=== PATIENT | female | born 1965 | race African-American/Black ===

== ENCOUNTER 2016-07-03 16:50 | Outpatient (CLI) | payer OTHER ==
[2016-07-03 17:13] LABS: BASOPHILS % 0.5 (0.0-1.5); EOSINOPHILS % 6.1 % (0.0-6.8); LYMPHOCYTES # 1.8 # k/uL (0.6-4.0); MEAN CORPUSCULAR HEMOGLOBIN 30.5 pg (28.0-34.0); MONOCYTES # 0.4 # k/uL (0.0-0.9); MONOCYTES % 6.7 % (0.0-11.0); NEUTROPHILS # 3.2 # k/uL (1.4-7.7)
[2016-07-03 17:37] LABS: eGFR (African) > 60; eGFR (Non-African) > 60
== END 2016-07-03 16:52 ==
LOC: LAB 16:50
PROVIDERS: ATTEND General Practice
DX: Z01.810 Encounter for preprocedural cardiovascular examination (principal)
CPT/HCPCS: 36415; 80053; 85025; 85610; 85730

== ENCOUNTER 2016-07-10 09:56 | Outpatient (CLI) | payer OTHER | END 2016-07-10 09:57 | LOC: OUT 09:56 | PROVIDERS: ATTEND General Practice | DX: Z01.818 Encounter for other preprocedural examination (principal) | CPT/HCPCS: 99213 ==

== ENCOUNTER 2016-07-24 08:51 | Outpatient (CLI) | payer OTHER | END 2016-07-24 09:00 | LOC: OUT 08:51 | PROVIDERS: ATTEND General Practice | DX: Z90.710 Acquired absence of both cervix and uterus (principal) | CPT/HCPCS: 99213 ==

== ENCOUNTER 2016-08-07 09:24 | Outpatient (CLI) | payer OTHER | END 2016-08-07 09:25 | LOC: OUT 09:24 | PROVIDERS: ATTEND General Practice | DX: Z90.710 Acquired absence of both cervix and uterus (principal) | CPT/HCPCS: 99213 ==

== ENCOUNTER 2016-10-02 09:16 | Outpatient (CLI) | payer OTHER | END 2016-10-02 09:17 | LOC: OUT 09:16 | PROVIDERS: ATTEND General Practice | DX: Z98.890 Other specified postprocedural states (principal) | CPT/HCPCS: 99213 ==

== ENCOUNTER 2017-01-22 09:32 | Outpatient (CLI) | payer OTHER | END 2017-01-22 09:33 | LOC: OUT 09:32 | PROVIDERS: ATTEND General Practice | DX: R10.2 Pelvic and perineal pain (principal); N94.10 Unspecified dyspareunia | CPT/HCPCS: 99213 ==

== ENCOUNTER 2017-06-05 17:26 | Outpatient (CLI) | payer BC ==
--- NOTE | 2017-06-05 18:49 | Diagnostic Imaging Report ---
ELSIE HERNANDES [facility] [address] [facility] [address] 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 Findings: 3 views of the lumbar spine demonstrate normal height. No anterior compression. Few anterior osteophytes. Lower facet degenerative changes. No soft tissue abnormalities. Impression: Mild degenerative changes. No vertebral body compression deformity. If patient is experiencing neurologic symptoms, consider obtaining MRI. Electronically signed on Jun 05, 2017 5:46:27 PM LOW PRESSURE KETTLE OPERATOR by: Angel Luis DIAS
== END 2017-06-05 17:27 ==
LOC: RAD 17:26
PROVIDERS: ATTEND Family Medicine
DX: M54.42 Lumbago with sciatica, left side (principal)
CPT/HCPCS: 72100

== ENCOUNTER 2017-10-25 13:33 | Outpatient (CLI) | payer BC ==
[2017-10-25 14:57] LABS: eGFR (African) > 60; eGFR (Non-African) > 60
== END 2017-10-25 13:35 ==
LOC: LAB 13:33
PROVIDERS: ATTEND Physician Assistant
DX: R73.9 Hyperglycemia, unspecified (principal)
CPT/HCPCS: 36415; 80053; 83036

== ENCOUNTER 2018-04-10 09:25 | Outpatient (CLI) | payer OTHER | END 2018-04-10 09:26 | LOC: LAB 09:25 | PROVIDERS: ATTEND Family Medicine | DX: E11.9 Type 2 diabetes mellitus without complications (principal) | CPT/HCPCS: 36415; 83036 ==

== ENCOUNTER 2018-07-17 12:04 | Outpatient (CLI) | payer BC ==
[2018-07-17 14:21] LABS: eGFR (Non-African) > 60
== END 2018-07-17 12:06 ==
LOC: LAB 12:04
PROVIDERS: ATTEND Family Medicine
DX: Z00.00 Encounter for general adult medical examination without abnormal findings (principal)
CPT/HCPCS: 36415; 80053; 80061; 83036

== ENCOUNTER 2018-07-21 12:21 | Emergency (ER) | payer BC ==
[2018-08-11 10:30] LABS: APPEARANCE,URINE CLOUDY (CLEAR); COLOR,URINE YELLOW (YELLOW)
[2018-08-11 10:31] LABS: OCCULT BLOOD,URINE NEGATIVE (NEGATIVE); UROBILINOGEN URINE 0.2 Eu (0.2-1.0)
== END 2018-07-21 12:53 | disposition home or self-care (01) ==
LOC: ED 12:21
DX: M54.5 Low back pain (principal)
CPT/HCPCS: 81002; 99282; 99283

== ENCOUNTER 2018-07-24 12:51 | Outpatient (CLI) | payer BC ==
--- NOTE | 2018-07-24 21:05 | Diagnostic Imaging Report ---
ELSIE HERNANDES [facility] [address] [facility] [address] [place], [place]. 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 TECHNIQUE: Scans through the abdomen and pelvis were obtained without contrast. FINDINGS: Lung parenchyma and cardiovascular structures in the chest included in the study are within normal limits. Diffuse fatty infiltration of the liver is seen without focal liver lesion. Gallbladder, pancreas, spleen, adrenal glands, and kidneys are otherwise unremarkable. No renal stone or hydronephrosis is identified. No periaortic, jordy-iliac or inguinal adenopathy is seen. Ureters and bladder are normal. Phleboliths in the pelvis are present. No adnexal abnormalities are identified. bowel content in the abdomen and pelvis is within normal limits and no evidence of inflammatory process identified. Scattered diverticula of the left colon are present. Normal appendix is visualized. Bones of the region are within normal limits. IMPRESSION: Scattered diverticulosis. Normal appendix. Fatty infiltration of the liver. No other significant abnormality identified. Electronically signed on Jul 24, 2018 5:47:36 PM SUPERVISOR ENDLESS TRACK VEHICLE by: Cabrera DIAS
== END 2018-07-24 12:52 ==
LOC: RAD 12:51
PROVIDERS: ATTEND Family Medicine
DX: K57.30 Diverticulosis of large intestine without perforation or abscess without bleeding (principal); K76.0 Fatty (change of) liver, not elsewhere classified; R10.84 Generalized abdominal pain
CPT/HCPCS: 74176

== ENCOUNTER 2018-10-01 20:27 | Emergency (ER) | payer BC ==
--- NOTE | 2018-10-01 20:52 | ED Physician Documentation ---
Abscess - HISTORIAN Historian: patient - HPI Stated Complaint: abscess Chief Complaint: Abscess Additional Information: Patient is a 52-year-old female who presents with a ? insect to lower abdomen under pannus. She states that she noticed it a few days ago (possibly 1 week)- she states it itches and goodwin- she was not sure how it looked but her daughter told her it was reddened. She denies any fever or chills. Onset: days ago (4-7 days ago) Timing: still present Duration: persistent since Location: other (beneath pannus) Quality: itchy, burning Identified Cause?: No (? ingrown hair vs insect bite) When Did Symptoms Start: 09/28/18 (4-7 days) Where: home Context: Medication Exposure: none Context: Food Exposure: none Context: Other Exposure: other (unsure) Further Comments: no - ROS CONST: none CVS/RESP: none EYES/ENT: none GI/: none MS/SKIN/LYMPH: none NEURO/PSYCH: none - PAST HX Past History: diabetes Type 2, hypertension, other (Migraines) Surgeries/Procedures: Yes (CABG 30yrs ago, Hysterectomy, BTL) Immunizations: UTD Allergies/Adverse Reactions: Allergies Allergy/AdvReac Type Severity Reaction Status Date / Time No Known Drug Allergies Allergy Verified 10/01/18 20:43 Home Medications: Ambulatory Orders Medication Instructions Recorded Cephalexin [Keflex] 500 mg PO Q6 #40 capsule 10/01/18 - SOCIAL HX Smoking History: non-smoker Alcohol Use: none Drug Use: none - FAMILY HX Family History: none - VITAL SIGNS Vital Signs: Vital Signs Temp Pulse Resp BP Pulse Ox 97.7 F 75 20 145/99 96 10/01/18 20:36 10/01/18 20:36 10/01/18 20:36 10/01/18 20:36 10/01/18 20:36 ED Results Lab/Radiology - Orders Orders: ED Orders Category Date Time Status Cephalexin [Keflex] Med 10/01/18 20:44 Once 1,000 mg PO NOW ONE Abscess Physical Exam - EXAM General Appearance: no acute distress, alert Skin: warm,dry, abscess (small redenned/erythemic area under pannus insect vs ingrown hair) Location: abdomen Character: erythematous Symptoms: warmth, tenderness, swelling Extremities: non-tender, nml ROM, no edema EENT: eyes nml inspection, lips nml, pharynx nml Neck: no swelling Respiratory: no resp distress, breath sounds normal CVS: reg. rate & rhythm, heart sounds nml Abdomen: nml bowel sounds Neuro/Psych: oriented x3, CN's nml as tested, motor nml, sensation nml, mood/affect nml Discharge Clincal Impression: Abdominal wall cellulitis Prescriptions: Cephalexin [Keflex] 500 mg PO Q6 #40 capsule Referrals: Rosalba Back MD [Primary Care Provider] - 2 Days Additional Instructions: Take Cephalexin 500 mg by mouth every 6 hours for 10 days Keep area clean and dry May use warm/moist heat If it opens apply antibiotic ointment Follow up with PCP in 1-2 weeks Condition: Good Disposition: 01 HOME, SELF-CARE Decision to Admit: NO Decision Time: 20:56
[2018-10-01] MEDS: CEPHALEXIN 250 MG CAPSULE PO ONE (20:54)
[2018-10-01 21:05] VITALS: BP 126/99
== END 2018-10-01 20:57 | disposition home or self-care (01) ==
LOC: ED 20:27
DX: L03.311 Cellulitis of abdominal wall (principal)
CPT/HCPCS: 99283